=== PATIENT | male | born 1990 | race Caucasian/White ===

== ENCOUNTER 2018-02-24 00:18 | Observation (INO) | payer MEDICAID ==
[~2018-02-24] VITALS: Ht 185.4 cm; Wt 71.2 kg
[2018-02-24 01:24] LABS: ALBUMIN 4.6 g/dL (3.4-5.0); ANION GAP 5 mmol/L (5-15); CALCIUM 9.3 mg/dL (8.5-10.1); CHLORIDE 111 mmol/L (98-107); SALICYLATE LEVEL 2.8 mg/dL (2.8-20.0)
[2018-02-24 01:30] LABS: ACETAMINOPHEN < 2 mcg/mL (10-30)
[2018-02-24 01:33] LABS: BASOPHILS # (AUTO) 0.05 x10^3/uL (0-0.1); BASOPHILS % (AUTO) 0 % (0-1); EOSINOPHILS # (AUTO) 0.15 x10^3/uL (0-0.4); EOSINOPHILS % (AUTO) 1 % (1-7); LYMPHOCYTES % (AUTO) 17 % (22-44); MD NO; MEAN CORPUSCULAR HEMOGLOBIN 31.9 pg (27.5-34.5); MEAN PLATELET VOLUME 9.2 fL (7.4-10.4); MONOCYTES # (AUTO) 0.84 x10^3/uL (0.2-0.8); MONOCYTES % (AUTO) 6 % (2-9); NEUTROPHILS % (AUTO) 76 % (42-75); PLATELET COUNT 240 x10^3/uL (130-400); RED BLOOD COUNT 5.66 x10^6/uL (4.38-5.82); RED CELL DISTRIBUTION WIDTH 12.8 % (9.4-14.8)
[2018-02-24 02:06] LABS: AMPHETAMINE SCREEN, URINE Negative (Negative); BARBITURATE SCREEN, URINE Negative (Negative); BENZODIAZEPINE SCREEN, URINE Negative (Negative); CANNABINOID SCREEN, URINE Positive (Negative); COCAINE SCREEN, URINE Negative (Negative); METHADONE SCREEN, URINE Negative (Negative); OPIATE SCREEN, URINE Negative (Negative)
[2018-02-24] MEDS ORDERED: ASPIRIN 81 MG TABLET CHEW ONE (02:53)
[2018-02-24] MEDS ORDERED: OLANZAPINE 10 MG TABLET PO ONE (03:00)
[2018-02-24] MEDS ORDERED: LORazepam 1MG TABLET PO ONE (03:00)
[2018-02-24] MEDS ORDERED: ZIPRASIDONE 20 MG INJ IM PRN (04:30)
[2018-02-24] MEDS ORDERED: ACETAMINOPHEN 325 MG TABLET PO PRN (04:30)
[2018-02-24] MEDS ORDERED: ZIPRASIDONE 20MG CAPSULE PO PRN (04:30)
[2018-02-24 04:45] VITALS: BP 138/92
[2018-02-24 07:55] VITALS: BP 95/52
[2018-02-24] MEDS: ZIPRASIDONE 20MG CAPSULE PO SCH ×2 (09:25→21:27)
[2018-02-24 19:49] VITALS: BP 121/69
[2018-02-24] MEDS: DIPHENHYDRAMINE 50 MG CAPSULE PO PRN (23:48)
[2018-02-24] MEDS: QUETIAPINE 25MG TABLET PO PRN (23:49)
[2018-02-25 05:43] LABS: BASOPHILS # (AUTO) 0.06 x10^3/uL (0-0.1); BASOPHILS % (AUTO) 1 % (0-1); EOSINOPHILS # (AUTO) 0.35 x10^3/uL (0-0.4); EOSINOPHILS % (AUTO) 4 % (1-7); LYMPHOCYTES # (AUTO) 3.29 x10^3/uL (1-3.4); LYMPHOCYTES % (AUTO) 38 % (22-44); MD NO; MEAN CORPUSCULAR HEMOGLOBIN 31.5 pg (27.5-34.5); MEAN CORPUSCULAR HGB CONC 33.4 g/dL (33.2-36.2); MEAN CORPUSCULAR VOLUME 94.4 fL (81-97); MEAN PLATELET VOLUME 9.6 fL (7.4-10.4); MONOCYTES # (AUTO) 0.59 x10^3/uL (0.2-0.8); MONOCYTES % (AUTO) 7 % (2-9); NEUTROPHILS # (AUTO) 4.32 x10^3/uL (1.8-6.8); NEUTROPHILS % (AUTO) 50 % (42-75); PLATELET COUNT 209 x10^3/uL (130-400); RED BLOOD COUNT 5.09 x10^6/uL (4.38-5.82)
[2018-02-25 07:55] VITALS: BP 96/52
[2018-02-25] MEDS: ZIPRASIDONE 20MG CAPSULE PO SCH ×2 (08:40→23:05)
[2018-02-25 19:38] VITALS: BP 147/63
[2018-02-25] MEDS: QUETIAPINE 25MG TABLET PO PRN (21:08)
[2018-02-25] MEDS: DIPHENHYDRAMINE 50 MG CAPSULE PO PRN (21:08)
[2018-02-25] MEDS: NICOTINE 14MG/24 HR PATCH.TD24 TD SCH (21:30)
[2018-02-26 07:40] VITALS: BP 130/82
[2018-02-26] MEDS: ZIPRASIDONE 20MG CAPSULE PO SCH ×2 (09:14→20:33)
[2018-02-26 19:46] VITALS: BP 139/84
[2018-02-26] MEDS: NICOTINE 14MG/24 HR PATCH.TD24 TD SCH (20:32)
[2018-02-27] MEDS: QUETIAPINE 25MG TABLET PO PRN ×2 (00:27→20:52)
[2018-02-27] MEDS: DIPHENHYDRAMINE 50 MG CAPSULE PO PRN ×2 (00:27→21:49)
[2018-02-27 08:00] VITALS: BP 135/78
[2018-02-27] MEDS: ZIPRASIDONE 20MG CAPSULE PO SCH ×2 (08:56→20:52)
[2018-02-27 19:23] VITALS: BP 139/72
[2018-02-27] MEDS: NICOTINE 14MG/24 HR PATCH.TD24 TD SCH (20:52)
[2018-02-28 07:30] VITALS: BP 129/87
[2018-02-28] MEDS: ZIPRASIDONE 20MG CAPSULE PO SCH ×2 (08:00→20:50)
[2018-02-28 19:28] VITALS: BP_SYST 130; BP_SYST 149; BP_DIAS 88; BP_DIAS 90
[2018-02-28] MEDS: DIPHENHYDRAMINE 50 MG CAPSULE PO PRN (20:49)
[2018-02-28] MEDS: QUETIAPINE 25MG TABLET PO PRN (20:50)
[2018-02-28] MEDS: NICOTINE 14MG/24 HR PATCH.TD24 TD SCH (20:58)
[2018-03-01 07:37] VITALS: BP 128/83
[2018-03-01] MEDS: ZIPRASIDONE 20MG CAPSULE PO SCH ×2 (08:46→20:12)
[2018-03-01 19:41] VITALS: BP 134/90
[2018-03-01] MEDS: NICOTINE 14MG/24 HR PATCH.TD24 TD SCH (20:13)
[2018-03-01] MEDS: DIPHENHYDRAMINE 50 MG CAPSULE PO PRN (23:22)
[2018-03-02] MEDS: DIPHENHYDRAMINE 50 MG CAPSULE PO PRN (00:04)
== END 2018-03-02 01:51 ==
LOC: ED 00:53 → EDIP 02:57 → 3E 04:29
PROVIDERS: ADMIT Family Medicine; ATTEND Family Medicine
DX: F23 Brief psychotic disorder (principal); F41.1 Generalized anxiety disorder; D75.1 Secondary polycythemia; F12.90 Cannabis use, unspecified, uncomplicated; F17.200 Nicotine dependence, unspecified, uncomplicated
CPT/HCPCS: 36415; 80048; 80307; 80329; 82040; 85025; 99285; G0378; G0480